=== PATIENT | male | born 1965 | race Two or more races ===

== ENCOUNTER 2016-10-13 15:52 | Emergency (ER) | payer SELFPAY ==
[2016-10-13 16:49] LABS: URINE BILIRUBIN 1+ (NEGATIVE); URINE BLOOD 4+ (NEGATIVE); URINE GLUCOSE (UA) NEGATIVE (NEGATIVE); URINE LEUKOCYTE ESTERASE TRACE (NEGATIVE); URINE NITRITE NEGATIVE (NEGATIVE); URINE PROTEIN 2+ (NEGATIVE); URINE UROBILINOGEN 1 mg/dL (0-1 mg/dl)
[2016-10-13 16:50] LABS: URINE APPEARANCE HAZY; URINE COLOR AMBER
[2016-10-13 16:56] LABS: URINE BACTERIA RARE; URINE EPITHELIAL CELLS 0 /hpf; URINE MUCUS 2+; URINE RBC 30-40 /hpf; URINE WBC NEG /hpf
[2016-10-13 17:59] LABS: ABSOLUTE NEUTROPHIL COUNT 11.3 K/mm3 (1.8-7.7); BASO # 0.1 K/mm3 (0.0-0.2); BASO % 0.3 % (0.2-1.0); EOS % 0.3 % (0.9-2.9); HEMATOCRIT 48.2 % (32.0-52.0); HEMOGLOBIN 16.1 gm/l (14.0-18.0); IMM NEUT # 0.1 K/mm3 (0-0.2); IMM NEUT% 0.5 % (0-1); LYMPH # 2.3 (1.0-4.8); LYMPH % 15.7 % (15-45); MEAN CELL VOLUME 91.3 fl (80.0-94.0); MEAN CORPUSCULAR HEMOGLOBIN 30.5 pg (27.0-31.0); MEAN CORPUSCULAR HGB CONC 33.4 g/dl (33.0-37.0); MEAN PLATELET VOLUME 9.2 fl (7.4-10.4); MONO # 0.9 (0.0-0.8); NEUT % 77.2 % (43-75); PLATELET COUNT 272 K/mm3 (130-400); RED CELL DISTRIBUTION WIDTH 13.4 % (11.5-14.5)
[2016-10-13] MEDS ORDERED: KETOROLAC TROMETHAMINE 15 MG/ML VIAL ONE (18:09)
[2016-10-13] MEDS ORDERED: ONDANSETRON 4 MG/2ML 2 ML VIAL ONE (18:09)
[2016-10-13 18:31] LABS: CALCIUM 9.5 mg/dL (8.6-10.3)
--- NOTE | 2016-10-13 18:44 | CT ---
ABD/PELVIS W/O CON COMPARISON: None HISTORY: Left flank pain Technique: Using a [employer] [address] scanner, images were obtained from the diaphragm to the floor the pelvis. No intravenous contrast. An automated dose reduction technique was used to minimize patient radiation dose. Dose: CTDIvol (mGy): 15.9 DLP(mGycm): 875.20 FINDINGS: Lung bases: Normal Inferior mediastinum and heart: Normal Liver: Normal Gallbladder: Normal Bile ducts: Normal. Pancreas: Normal Spleen: Normal Adrenal glands: Normal Kidneys: Normal right kidney. Mild left hydronephrosis. Ureters: Obstructing for bladder stone at the left ureteropelvic pelvic junction. Normal right ureter. Urinary bladder: Normal Prostate gland and seminal vesicles: Normal Blood vessels: Normal. Lymph nodes: Normal Stomach: Normal Duodenum: Normal Small intestine: Normal Appendix: Normal Colon: Normal Abdominal wall and supporting musculature: Normal Bones: No acute finding. Degenerative changes in the spine and the left sacroiliac joint. IMPRESSION: 1. 4 mm obstructing stone at the left ureteropelvic junction causing mild left hydronephrosis. The report was sent to the emergency department electronic medical record system, 10/13/2016 at 18:44
== END 2016-10-13 19:19 | disposition home or self-care (01) ==
LOC: ED 15:52
DX: N13.2 Hydronephrosis with renal and ureteral calculous obstruction (principal)
CPT/HCPCS: 85025; 80048; 81001; 74176; 96375; 99283 ×2; 96374; J1885; J2405